=== PATIENT | male | born 1995 | race African-American/Black ===

== ENCOUNTER 2018-03-06 13:32 | Emergency (ER) | payer OTHER ==
--- NOTE | 2018-03-06 14:54 | RAD REPORT ---
EXAM DESCRIPTION: CT - Head Brain Wo Cont - 03/06/2018 2:39 pm CLINICAL HISTORY: Headache COMPARISON: None. TECHNIQUE: Axial 5 mm thick images of the head were obtained without IV contrast. All CT scans are performed using dose optimization technique as appropriate and may include automated exposure control or mA/KV adjustment according to patient size. FINDINGS: No intracranial hemorrhage, mass, edema or shift of mid-line structures. No acute infarcti on changes seen. No abnormal extra-axial fluid collections. Ventricles are normal. Mastoid air cells and visualized portions of the paranasal sinuses are clear. No acute bony findings. IMPRESSION: Negative non-contrast CT head examination.
--- NOTE | 2018-03-06 15:10 | RAD REPORT ---
EXAM DESCRIPTION: RAD - Chest Single View - 03/06/2018 2:51 pm CLINICAL HISTORY: Dizziness, bradycardia, shortness of breath COMPARISON: None. TECHNIQUE: AP portable chest image was obtained 1448 hours . FINDINGS: Lungs are clear. Heart and vasculature are normal. No measurable pleural effusion and no p neumothorax. No acute bony abnormality seen. No acute aortic findings suspected. IMPRESSION: No acute cardiopulmonary process.
[2018-03-06 16:06] LABS: BUN Blood Urea Nitrogen 10 mg/dL (7-18); Bicarbonate 27 mmol/L (21-32); Glucose Level 70 mg/dL (74-106); Potassium 4.2 mmol/L (3.5-5.1); Sodium Level 138 mmol/L (136-145); Troponin (Emerg Dept Use Only) < 0.02 ng/mL (0.0-0.045)
[2018-03-06 16:07] LABS: Absolute Lymphocytes (CBC) 1.8 K/uL (0.7-4.9); Absolute Monocytes 0.5 K/uL (0.1-1.3); Basophils % 0.5 % (0-1.3); Eosinophils % 1.2 % (0-4.4); Hematocrit 49.4 % (39.6-49.0); Lymphocytes % 33.6 % (15.3-44.8); MCH 27.7 pg (27.0-35.0); MCV 83.9 fL (80-100); MPV 8.9 fL (7.6-11.3); Monocytes % 8.6 % (3.3-12.3); RBC Red Blood Cell Count 5.89 M/uL (4.33-5.43)
[2018-03-06] MEDS ORDERED: NA CHLORIDE 0.9% 1,000 ML ONE (16:22)
--- NOTE | 2018-03-06 16:29 | EDPHYS ---
Physician Documentation [facility] Name: Nba Ren Age: 22 yrs Sex: Male : 1995 Arrival Date: 03/06/2018 Time: 13:35 Bed 24 Private MD: ED Physician Jonathan Dugan HPI: 03/06 15:00 This 22 yrs old Black Male presents to ER via EMS with complaints of Dizziness. pm1 15:00 The patient presents with feeling faint. Onset: The symptoms/episode began/occurred pm1 this morning. Context: occurred senior care, occurred while the patient was getting up from bed, just prior to the episode the patient experienced no apparent symptoms. Modifying factors: The symptoms are alleviated by lying down, the symptoms are aggravated by changing position. Associated signs and symptoms: Pertinent positives: nausea, vomiting, Pertinent negatives: abdominal pain, chest pain, confusion, head injury, numbness, tingling. Severity of symptoms: in the emergency department the symptoms have resolved and did so earlier today. Patient's baseline: Neuro: alert and fully oriented, Motor: no deficits, Ambulation: walks without assistance, Speech: normal. The patient has not experienced similar symptoms in the past. Historical: - Allergies: 13:37 No Known Allergies; ed1 - Home Meds: 13:37 None [Active]; ed1 - PMHx: 13:37 None; ed1 - PSHx: 13:37 None; ed1 - Immunization history:: Adult Immunizations up to date. - Social history:: Smoking status: Patient/guardian denies using tobacco. - Ebola Screening: : Patient negative for fever greater than or equal to 101.5 degrees Fahrenheit, and additional compatible Ebola Virus Disease symptoms Patient denies exposure to infectious person Patient denies travel to an Ebola-affected area in the 21 days before illness onset No symptoms or risks identified at this time. ROS: 15:00 Constitutional: Negative for fever, chills, and weight loss, Eyes: Negative for injury, pm1 pain, redness, and discharge, ENT: Negative for injury, pain, and discharge, Neck: Negative for injury, pain, and swelling, Cardiovascular: Negative for chest pain, palpitations, and edema, Respiratory: Negative for shortness of breath, cough, wheezing, and pleuritic chest pain, Back: Negative for injury and pain, : Negative for injury, bleeding, discharge, and swelling, MS/Extremity: Negative for injury and deformity, Skin: Negative for injury, rash, and discoloration. 15:00 Abdomen/GI: Positive for nausea and vomiting, Negative for abdominal pain, diarrhea. 15:00 Neuro: Positive for dizziness, Negative for altered mental status, syncope. Exam: 15:00 Constitutional: This is a well developed, well nourished patient who is awake, alert, pm1 and in no acute distress. Head/Face: Normocephalic, atraumatic. Eyes: Pupils equal round and reactive to light, extra-ocular motions intact. Lids and lashes normal. Conjunctiva and sclera are non-icteric and not injected. Cornea within normal limits. Periorbital areas with no swelling, redness, or edema. ENT: Nares patent. No nasal discharge, no septal abnormalities noted. Tympanic membranes are normal and external auditory canals are clear. Oropharynx with no redness, swelling, or masses, exudates, or evidence of obstruction, uvula midline. Mucous membranes moist. Neck: Trachea midline, no thyromegaly or masses palpated, and no cervical lymphadenopathy. Supple, full range of motion without nuchal rigidity, or vertebral point tenderness. No Meningismus. Chest/axilla: Normal chest wall appearance and motion. Nontender with no deformity. No lesions are appreciated. Cardiovascular: Regular rate and rhythm with a normal S1 and S2. No gallops, murmurs, or rubs. Normal PMI, no JVD. No pulse deficits. Respiratory: Lungs have equal breath sounds bilaterally, clear to auscultation and percussion. No rales, rhonchi or wheezes noted. No increased work of breathing, no retractions or nasal flaring. Abdomen/GI: Soft, non-tender, with normal bowel sounds. No distension or tympany. No guarding or rebound. No evidence of tenderness throughout. Back: No spinal tenderness. No costovertebral tenderness. Full range of motion. Skin: Warm, dry with normal turgor. Normal color with no rashes, no lesions, and no evidence of cellulitis. MS/ Extremity: Pulses equal, no cyanosis. Neurovascular intact. Full, normal range of motion. 15:00 Neuro: Orientation: is normal, Motor: is normal, moves all fours, Sensation: is normal, no obvious gross deficits, Gait: is steady, at a normal pace, without difficulty. Vital Signs: 13:37 BP 126 / 62; Pulse 50; Resp 18; Temp 98(O); Pulse Ox 96% ; Weight 84.82 kg; Height 6 ed1 ft. 0 in. (182.88 cm); Pain 0/10; 14:21 BP 121 / 61 Sitting; Pulse 55; Resp 20; Pulse Ox 100% on R/A; tm3 14:21 BP 126 / 67 Standing; Pulse 57; Resp 20; Pulse Ox 100% on R/A; tm3 14:21 BP 120 / 50 Supine; Pulse 60; Resp 16; Pulse Ox 100% on R/A; ed1 15:36 BP 124 / 65; Pulse 55; Resp 24; Pulse Ox 99% on R/A; Pain 0/10; ed1 17:10 BP 112 / 58; Pulse 56; Resp 15; Pulse Ox 100% on R/A; Pain 0/10; ed1 13:37 Body Mass Index 25.36 (84.82 kg, 182.88 cm) ed1 MDM: 13:47 Patient medically screened. pm1 16:27 Data reviewed: vital signs. Data interpreted: Pulse oximetry: on room air is 99 %. pm1 Interpretation: normal. Counseling: I had a detailed discussion with the patient and/or guardian regarding: the historical points, exam findings, and any diagnostic results supporting the discharge/admit diagnosis, lab results, radiology results, the need for outpatient follow up, to return to the emergency department if symptoms worsen or persist or if there are any questions or concerns that arise at home. 03/06 14:31 Order name: Basic Metabolic Panel; Complete Time: 16:15 pm1 03/06 14:31 Order name: CBC with Diff; Complete Time: 16:15 pm1 03/06 14:31 Order name: Troponin (emerg Dept Use Only); Complete Time: 16:15 pm1 03/06 14:31 Order name: XRAY Chest (1 view); Complete Time: 15:20 pm1 03/06 14:31 Order name: CT Head Brain wo Cont; Complete Time: 15:20 pm1 03/06 14:10 Order name: Orthostatic Blood Pressure; Complete Time: 14:27 pm1 03/06 14:31 Order name: EKG; Complete Time: 14:32 pm1 03/06 14:31 Order name: Cardiac monitoring; Complete Time: 14:42 pm1 03/06 14:31 Order name: EKG - Nurse/Tech; Complete Time: 15:37 pm1 03/06 14:31 Order name: IV Saline Lock; Complete Time: 15:37 pm1 03/06 14:31 Order name: Labs collected and sent; Complete Time: 15:37 pm1 03/06 14:31 Order name: O2 Per Protocol; Complete Time: 14:42 pm1 03/06 14:31 Order name: O2 Sat Monitoring; Complete Time: 14:42 pm1 Administered Medications: 16:18 Drug: NS 0.9% 1000 ml Route: IV; Rate: 1000 ml; Site: right antecubital; ed1 17:11 Follow up: IV Status: Completed infusion; IV Intake: 1000ml ed1 Disposition: 03/07 13:13 Co-signature as Attending Physician, Jonathan Dugan MD I agree with the assessment and kdr plan of care. Disposition: 03/06/18 16:28 Discharged to Home. Impression: Dizziness and giddiness, Dehydration. - Condition is Stable. - Discharge Instructions: Dehydration, Adult, Dizziness, Rehydration, Adult. - Medication Reconciliation Form, Thank You Letter form. - Follow up: Emergency Department; When: As needed; Reason: Worsening of condition. Follow up: Private Physician; When: 2 - 3 days; Reason: Recheck today's complaints, Continuance of care, Re-evaluation by your physician. - Problem is new. - Symptoms have improved. Signatures: Dispatcher [employer] EDRI Jonathan Dugan MD MD kdr Riggs, Erika, AIRCRAFT FUSELAGE FRAMER AIRCRAFT FUSELAGE FRAMER ed1 Art Rutherford, CREATIVE ARTS THERAPIST CREATIVE ARTS THERAPIST pm1 Corrections: (The following items were deleted from the chart) 03/06 17:12 16:28 03/06/2018 16:28 Discharged to Home. Impression: Dizziness and giddiness; ed1 Dehydration. Condition is Stable. Forms are Medication Reconciliation Form, Thank You Letter, Antibiotic Education, Prescription Opioid Use. Follow up: Emergency Department; When: As needed; Reason: Worsening of condition. Follow up: Private Physician; When: 2 - 3 days; Reason: Recheck today's complaints, Continuance of care, Re-evaluation by your physician. Problem is new. Symptoms have improved. pm1
--- NOTE | 2018-03-06 16:29 | ER ---
Nurse's Notes [facility] Name: Nba Ren Age: 22 yrs Sex: Male : 1995 Arrival Date: 03/06/2018 Time: 13:35 Bed 24 Private MD: Diagnosis: Dizziness and giddiness;Dehydration Presentation: 03/06 13:35 Presenting complaint: EMS states: He initially felt very dizzy and has a low heart ed1 rate. Transition of care: Half-Way. Onset of symptoms was March 06, 2018. Risk Assessment: Do you want to hurt yourself or someone else? Patient reports no desire to harm self or others. Initial Sepsis Screen: Does the patient meet any 2 criteria? No. Patient's initial sepsis screen is negative. Does the patient have a suspected source of infection? No. Patient's initial sepsis screen is negative. Care prior to arrival: None. 13:35 Method Of Arrival: EMS: [facility] ed1 13:51 Acuity: REBECCA 3 iw Triage Assessment: 13:37 General: Appears comfortable, Behavior is calm, cooperative. Pain: Denies pain. Neuro: ed1 Level of Consciousness is awake, alert, obeys commands, Oriented to person, place, time, situation. Cardiovascular: Denies chest pain. Respiratory: Airway is patent Respiratory effort is even, unlabored, Respiratory pattern is regular, symmetrical, Breath sounds are clear bilaterally. Historical: - Allergies: 13:37 No Known Allergies; ed1 - Home Meds: 13:37 None [Active]; ed1 - PMHx: 13:37 None; ed1 - PSHx: 13:37 None; ed1 - Immunization history:: Adult Immunizations up to date. - Social history:: Smoking status: Patient/guardian denies using tobacco. - Ebola Screening: : Patient negative for fever greater than or equal to 101.5 degrees Fahrenheit, and additional compatible Ebola Virus Disease symptoms Patient denies exposure to infectious person Patient denies travel to an Ebola-affected area in the 21 days before illness onset No symptoms or risks identified at this time. Screenin:24 Abuse screen: Denies threats or abuse. Denies injuries from another. Nutritional ed1 screening: No deficits noted. Tuberculosis screening: No symptoms or risk factors identified. Fall Risk None identified. Assessment: 14:24 General: Appears in no apparent distress. comfortable, Behavior is calm, cooperative, ed1 Reports chills for fever for feeling ill for fatigue for. Pain: Denies pain. Neuro: Level of Consciousness is awake, alert, obeys commands, Oriented to person, place, time, situation, Reports dizziness, earlier today Denies weakness blurred vision headache. Cardiovascular: Denies chest pain, Heart tones S1 S2 present. Respiratory: Airway is patent Respiratory effort is even, unlabored, Respiratory pattern is regular, symmetrical, Breath sounds are clear bilaterally. GI: Abdomen is flat, non-distended, Bowel sounds present X 4 quads. Abd is soft and non tender X 4 quads. Reports vomiting. : No signs and/or symptoms were reported regarding the genitourinary system. EENT: No signs and/or symptoms were reported regarding the EENT system. Derm: Skin is intact, is healthy with good turgor, Skin is dry, Skin is normal, Skin temperature is warm. Musculoskeletal: Circulation, motion, and sensation intact. 15:00 Reassessment: I agree with above assessment by SHARON Reyes. iw 15:36 Reassessment: Patient appears in no apparent distress at this time. No changes from ed1 previously documented assessment. Patient and/or family updated on plan of care and expected duration. Pain level reassessed. Patient is alert, oriented x 3, equal unlabored respirations, skin warm/dry/pink. Patient denies pain at this time. 17:10 Reassessment: Patient appears in no apparent distress at this time. Patient and/or ed1 family updated on plan of care and expected duration. Pain level reassessed. Patient is alert, oriented x 3, equal unlabored respirations, skin warm/dry/pink. Patient denies pain at this time. Patient states feeling better. Patient states symptoms have improved. Vital Signs: 13:37 BP 126 / 62; Pulse 50; Resp 18; Temp 98(O); Pulse Ox 96% ; Weight 84.82 kg; Height 6 ed1 ft. 0 in. (182.88 cm); Pain 0/10; 14:21 BP 121 / 61 Sitting; Pulse 55; Resp 20; Pulse Ox 100% on R/A; tm3 14:21 BP 126 / 67 Standing; Pulse 57; Resp 20; Pulse Ox 100% on R/A; tm3 14:21 BP 120 / 50 Supine; Pulse 60; Resp 16; Pulse Ox 100% on R/A; ed1 15:36 BP 124 / 65; Pulse 55; Resp 24; Pulse Ox 99% on R/A; Pain 0/10; ed1 17:10 BP 112 / 58; Pulse 56; Resp 15; Pulse Ox 100% on R/A; Pain 0/10; ed1 13:37 Body Mass Index 25.36 (84.82 kg, 182.88 cm) ed1 ED Course: 13:35 Patient arrived in ED. ed1 13:37 Arm band placed on right wrist. ed1 13:41 Amy Gallo LVN is Primary Nurse. ed1 13:47 Art Rutherford NP is PHCP. pm1 13:47 Jonathan Dugan MD is Attending Physician. pm1 13:51 Triage completed. iw 14:24 Patient has correct armband on for positive identification. Bed in low position. Call ed1 light in reach. Side rails up X2. Security at bedside. 14:40 CT Head Brain wo Cont In Process Unspecified. EDMS 14:51 X-ray completed. Portable x-ray completed in exam room. Patient tolerated procedure ls3 well. 14:51 XRAY Chest (1 view) In Process Unspecified. EDMS 14:53 EKG done, by pathology lab technician. reviewed by Art Rutherford NP. sm3 15:15 Inserted saline lock: 20 gauge in right antecubital area, using aseptic technique. ed1 Blood collected. 16:32 Awaiting: Completion of IV fluids. ed1 17:10 No provider procedures requiring assistance completed. IV discontinued, intact, ed1 bleeding controlled, No redness/swelling at site. Pressure dressing applied. Administered Medications: 16:18 Drug: NS 0.9% 1000 ml Route: IV; Rate: 1000 ml; Site: right antecubital; ed1 17:11 Follow up: IV Status: Completed infusion; IV Intake: 1000ml ed1 Intake: 17:11 IV: 1000ml; Total: 1000ml. ed1 Outcome: 16:28 Discharge ordered by . pm1 17:11 Discharged to Law Enforcement ed1 17:11 Condition: good 17:11 Discharge instructions given to patient, police, Instructed on discharge instructions, follow up and referral plans. Demonstrated understanding of instructions, follow-up care. 17:12 Patient left the ED. ed1 Signatures: Dispatcher [employer] EDMS Ti, Jayjay tm3 Brandy Hardy, RN RN iw Amy Gallo, DIGITAL ARTIST DIGITAL ARTIST ed1 Art Rutherford, GRAIN LOADER GRAIN LOADER pm1 Bridget Chaney sm3 Nikki Moe ls3 Corrections: (The following items were deleted from the chart) 14:24 14:21 BP 120 / 20 Supine; Pulse 60bpm; Resp 16bpm; Pulse Ox 100% RA; tm3 ed1
--- NOTE | 2018-03-06 23:29 | EKG ---
Test Date: 2018-03-06 Test Time: 14:45:49 [employer] Coordinator: [facility] MEASUREMENT RESULTS: Intervals: Rate: 56 HI: 140 QRSD: 74 QT: 424 QTc: 409 [place]: P: 45 HI: 140 QRS: 79 T: 22 INTERPRETIVE STATEMENTS: Sinus bradycardia ST elevation, probably due to early repolarization Borderline ECG No previous ECG available for comparison Electronically Signed On 03-06-18 23:29:03 CDT by Axel Hollins
== END 2018-03-06 17:12 | disposition home or self-care (01) ==
LOC: ER 13:32
DX: E86.0 Dehydration (principal)
CPT/HCPCS: 36415; 70450; 71045; 80048; 84484; 85025; 93005; 96360; 99285; J7030